=== PATIENT | male | born 1980 | race Caucasian/White ===

== ENCOUNTER 2017-12-02 13:46 | Emergency (ER) | payer OTHER ==
[~2017-12-02 13:46] MED LIST: LISI10TA7 PO
[2017-12-02] MEDS ORDERED: PROCHLORPERAZINE EDISYLATE 10 MG/2 ML VIAL ONE (14:19)
== END 2017-12-02 16:08 | disposition home or self-care (01) ==
LOC: EDH 13:46
DX: R51 Headache (principal); Z88.0 Allergy status to penicillin
CPT/HCPCS: 70450; 96374; 99284; J0780

== ENCOUNTER 2018-10-01 20:12 | Emergency (ER) | payer OTHER | END 2018-10-01 22:14 | disposition home or self-care (01) | LOC: EDH 20:12 | DX: M54.12 Radiculopathy, cervical region (principal); R05 Cough; I10 Essential (primary) hypertension; Z88.0 Allergy status to penicillin | CPT/HCPCS: 71046; 93005 ==

== ENCOUNTER → 2020-01-06 | Outpatient (CLI) | payer OTHER | END | disposition home or self-care (01) | LOC: RAH 08:16 | PROVIDERS: ATTEND Internal Medicine | DX: K21.9 Gastro-esophageal reflux disease without esophagitis (principal); K29.60 Other gastritis without bleeding | CPT/HCPCS: 74240 ==

== ENCOUNTER 2022-01-23 09:28 | Observation (INO) | payer OTHER ==
[2022-01-20 11:44] LABS: CREATININE 0.6 mg/dL (0.5-1.5); POTASSIUM 3.8 mmol/L (3.5-5.1)
[2022-01-20 12:13] LABS: BASOPHILS % (AUTO) 0.7 % (0.0-5.0); EOSINOPHILS % (AUTO) 1.8 % (0.0-8.0); HEMATOCRIT 40.1 % (42-54); LYMPHOCYTES % (AUTO) 33.3 % (21.0-51.0); MEAN CORPUSCULAR HEMOGLOBIN 27.7 pg (27.0-33.0); MEAN CORPUSCULAR HGB CONC 31.7 g/dL (32.0-36.0); MEAN CORPUSCULAR VOLUME 87.4 fL (79-99); MONOCYTES % (AUTO) 7.1 % (3.0-13.0); NEUTROPHILS % (AUTO) 56.6 % (40.0-77.0); PLATELET COUNT (AUTO) 201 K/uL (130-400); RED BLOOD CELL COUNT(AUTO) 4.59 MIL/uL (4.50-6.20); RED CELL DISTRIBUTION WIDTH 13.5 % (11.0-15.5); WHITE BLOOD COUNT (AUTO) 7.6 K/uL (4.8-10.8)
[2022-01-20 12:15] VITALS: BP 147/69
[2022-01-20 12:16] LABS: INR 0.93 (0.85-1.15); PROTHROMBIN TIME 9.4 SEC (9.6-11.6)
[2022-01-20 12:20] LABS: APPEARANCE,URINE Clear (CLEAR); BILIRUBIN,URINE Negative (NEGATIVE); COLOR,URINE Yellow (YELLOW); GLUCOSE, URINE (UA) Negative (NEGATIVE); KETONES,URINE Negative (NEGATIVE); LEUKOCYTE ESTERASE ,URINE Negative (NEGATIVE); NITRATE,URINE Negative (NEGATIVE); OCCULT BLOOD,URINE Negative (NEGATIVE); PROTEIN,URINE Negative (NEGATIVE)
[~2022-01-23] VITALS: Ht 175.3 cm; Wt 150.0 kg
[2022-01-23] VITALS (22 sets, daily range): BP systolic 100–145; BP diastolic 49–86
[~2022-01-23 09:28] MED LIST changes: +ACET-2079 PO; +BACL20TA PO; +FLUT16H NS; +IPRA3AMP24 IH; -LISI10TA7 PO; +LISI1TAB51 PO; +MONT-39 PO
[2022-01-23] MEDS ORDERED: LACTATED RINGERS 1000ML 1,000 ML IV ONE (10:14)
[2022-01-23] MEDS ORDERED: CLINDAMYCIN IVPB 900MG/50ML 50 ML IV ONE (10:14)
[2022-01-23] MEDS ORDERED: LIDOCAINE PF 100MG/5ML (2%) SYRINGE 5ML ONE (12:17)
[2022-01-23] MEDS ORDERED: GLYCOPYRROLATE 1 MG/5 ML SYRINGE ONE (12:18)
[2022-01-23] MEDS ORDERED: ONDANSETRON 4MG INJ ONE ×2 (12:18→17:50)
[2022-01-23] MEDS ORDERED: SUCCINYLCHOLINE CHLORIDE 20 MG/ML 10 ML VIAL ONE (12:18)
[2022-01-23] MEDS ORDERED: NEOSTIGMINE 5MG/5ML SYR IV ONE (12:18)
[2022-01-23] MEDS ORDERED: DEXAMETHASONE SOD PHOSPHATE 10MG/ML 1ML VIAL ONE (12:18)
[2022-01-23] MEDS ORDERED: SUCCINYLCHOLINE 200MG/10ML SYR ONE (12:18)
[2022-01-23] MEDS ORDERED: PROPOFOL 10 MG/ML 20ML VIAL IV ONE ×2 (12:18→12:23)
[2022-01-23] MEDS ORDERED: FENTANYL CITRATE PF 50 MCG/1 ML 2ML VIAL ONE (12:19)
[2022-01-23] MEDS ORDERED: ROCURONIUM 10MG/1ML SYR 10 MG/ML ML ONE ×2 (12:19→14:36)
[2022-01-23] MEDS ORDERED: MIDAZOLAM HCL 1 MG/ML 2ML VIAL ONE (12:19)
[2022-01-23] MEDS ORDERED: ROPIVACAINE 0.5% 5MG/ML 30ML IJ ONE (12:20)
[2022-01-23] MEDS ORDERED: CLINDAMYCIN 900MG/6ML INJ IJ ONE (14:00)
[2022-01-23] MEDS ORDERED: VANCOMYCIN 1G VIAL ONE (14:19)
[2022-01-23] MEDS ORDERED: VANCOMYCIN 1G VIAL IRRIG ONE (15:00)
[2022-01-23] MEDS ORDERED: TRANEXAMIC ACID 1000MG/10ML ONE (18:09)
[2022-01-23] MEDS ORDERED: FERROUS FUMARATE 324 MG TABLET PO PRN (18:30)
[2022-01-23] MEDS ORDERED: POTASSIUM CHLORIDE 20MEQ/100ML 100 ML IV PRN (18:30)
[2022-01-23] MEDS ORDERED: LIDOCAINE HCL-MPF 1% 2ML VIAL IV PRN (18:30)
[2022-01-23] MEDS ORDERED: OXYCODONE HCL 5 MG TAB PO PRN (18:30)
[2022-01-23] MEDS ORDERED: ONDANSETRON 4MG INJ IVP PRN (18:30)
[2022-01-23] MEDS ORDERED: CALCIUM CARB 500MG PO PRN (18:30)
[2022-01-23] MEDS ORDERED: KCL 20 MEQ ERTAB PO PRN (18:30)
[2022-01-23] MEDS ORDERED: TRAMADOL HCL 50 MG TABLET PO PRN (18:30)
[2022-01-23] MEDS ORDERED: POTASSIUM CHLORIDE 10% ELIXIR 20 MEQ/15 ML UDCUP PO PRN (18:30)
[2022-01-23] MEDS: ACETAMINOPHEN 500 MG TABLET PO SCH (18:30)
[2022-01-23] MEDS ORDERED: MEPERIDINE-PF 25 MG/ML SYG ONE (18:49)
[2022-01-23] MEDS: FLUTICASONE PROPIONATE 50MCG/SPRAY 16 GM BOTTLE NS SCH (21:00)
[2022-01-23] MEDS ORDERED: IPRATROPIUM/ALBUTEROL SULFATE 3 ML SOLUTION IH PRN (21:00)
[2022-01-23] MEDS: PREGABALIN 25 MG CAP PO SCH (21:04)
[2022-01-23] MEDS: CELECOXIB 200 MG CAP PO SCH (21:04)
[2022-01-23] MEDS: FAMOTIDINE 20MG TAB PO SCH (21:04)
[2022-01-23] MEDS: APIXABAN 2.5 MG TABLET PO SCH (21:04)
[2022-01-23] MEDS: OXYCODONE HCL 5 MG TAB PO PRN (21:05)
[2022-01-23] MEDS: MONTELUKAST SODIUM 10 MG TAB PO SCH (21:06)
[2022-01-23] MEDS: 0.9%NACL 1000ML 1,000 ML IV SCH (21:11)
[2022-01-23] MEDS ORDERED: IPRATROPIUM/ALBUTEROL SULFATE 3 ML SOLUTION IH ONE (22:01)
[2022-01-23] MEDS: CLINDAMYCIN IVPB 900MG/50ML 50 ML IV SCH (23:54)
[2022-01-24] VITALS (7 sets, daily range): BP systolic 96–141; BP diastolic 45–66
[2022-01-24] MEDS: OXYCODONE HCL 5 MG TAB PO PRN ×6 (01:19→23:03)
[2022-01-24] MEDS: ACETAMINOPHEN 500 MG TABLET PO SCH ×3 (02:51→17:40)
[2022-01-24 04:02] LABS: HEMATOCRIT 30.6 % (42-54); MEAN CORPUSCULAR HEMOGLOBIN 28.5 pg (27.0-33.0); MEAN CORPUSCULAR VOLUME 86.2 fL (79-99); RED BLOOD CELL COUNT(AUTO) 3.55 MIL/uL (4.50-6.20); RED CELL DISTRIBUTION WIDTH 13.3 % (11.0-15.5); WHITE BLOOD COUNT (AUTO) 12.3 K/uL (4.8-10.8)
[2022-01-24 04:18] LABS: CREATININE 0.7 mg/dL (0.5-1.5); POTASSIUM 4.7 mmol/L (3.5-5.1)
[2022-01-24] MEDS: 0.9%NACL 1000ML 1,000 ML IV SCH (04:30)
[2022-01-24] MEDS: HYDROCHLOROTHIAZIDE 25 MG TABLET PO SCH (09:00)
[2022-01-24] MEDS: LISINOPRIL 20 MG TABLET PO SCH (09:00)
[2022-01-24] MEDS: FLUTICASONE PROPIONATE 50MCG/SPRAY 16 GM BOTTLE NS SCH (09:11)
[2022-01-24] MEDS: PREGABALIN 25 MG CAP PO SCH ×2 (09:11→19:57)
[2022-01-24] MEDS: CELECOXIB 200 MG CAP PO SCH ×2 (09:11→19:57)
[2022-01-24] MEDS: APIXABAN 2.5 MG TABLET PO SCH ×2 (09:12→19:57)
[2022-01-24] MEDS: FAMOTIDINE 20MG TAB PO SCH ×2 (09:12→19:57)
[2022-01-24] MEDS: TAMSULOSIN HCL 0.4 MG CAP.ER.24H PO SCH (09:12)
[2022-01-24] MEDS: POLYETHYLENE GLYCOL 3350 17 GM POWD.PACK PO SCH (09:12)
[2022-01-24] MEDS: CLINDAMYCIN IVPB 900MG/50ML 50 ML IV SCH (09:32)
[2022-01-24] MEDS: MONTELUKAST SODIUM 10 MG TAB PO SCH (19:57)
[2022-01-24] MEDS: DiphenhydrAMINE HCL 50 MG/ML VIAL IVP PRN (20:55)
[2022-01-25] VITALS (7 sets, daily range): BP systolic 104–143; BP diastolic 49–68
[2022-01-25] MEDS: ACETAMINOPHEN 500 MG TABLET PO SCH ×3 (03:06→19:10)
[2022-01-25] MEDS: OXYCODONE HCL 5 MG TAB PO PRN ×4 (03:38→16:27)
[2022-01-25] MEDS: FLUTICASONE PROPIONATE 50MCG/SPRAY 16 GM BOTTLE NS SCH (07:55)
[2022-01-25] MEDS: TAMSULOSIN HCL 0.4 MG CAP.ER.24H PO SCH (08:37)
[2022-01-25] MEDS: FAMOTIDINE 20MG TAB PO SCH ×2 (08:37→20:24)
[2022-01-25] MEDS: PREGABALIN 25 MG CAP PO SCH ×2 (08:37→20:24)
[2022-01-25] MEDS: CELECOXIB 200 MG CAP PO SCH ×2 (08:37→20:24)
[2022-01-25] MEDS: LISINOPRIL 20 MG TABLET PO SCH (08:38)
[2022-01-25] MEDS: POLYETHYLENE GLYCOL 3350 17 GM POWD.PACK PO SCH (08:38)
[2022-01-25] MEDS: APIXABAN 2.5 MG TABLET PO SCH ×2 (08:38→20:25)
[2022-01-25] MEDS: HYDROCHLOROTHIAZIDE 25 MG TABLET PO SCH (08:38)
[2022-01-25] MEDS ORDERED: MAGNESIUM CITRATE 296 ML SOLUTION PO SCH (15:30)
[2022-01-25] MEDS: MONTELUKAST SODIUM 10 MG TAB PO SCH (20:24)
[2022-01-25] MEDS: KETOROLAC 15MG/ML VIAL (15MG/ML) IV PRN (20:25)
[2022-01-25] MEDS: DiphenhydrAMINE HCL 50 MG/ML VIAL IVP PRN (20:35)
[2022-01-26] MEDS: ACETAMINOPHEN 500 MG TABLET PO SCH ×4 (01:12→18:27)
[2022-01-26] MEDS: OXYCODONE HCL 5 MG TAB PO PRN ×3 (03:16→14:18)
[2022-01-26 04:22] VITALS: BP 127/60
[2022-01-26 08:15] VITALS: BP 133/64
[2022-01-26] MEDS: TAMSULOSIN HCL 0.4 MG CAP.ER.24H PO SCH (08:31)
[2022-01-26] MEDS: CELECOXIB 200 MG CAP PO SCH (08:31)
[2022-01-26] MEDS: APIXABAN 2.5 MG TABLET PO SCH (08:31)
[2022-01-26] MEDS: FAMOTIDINE 20MG TAB PO SCH (08:32)
[2022-01-26] MEDS: POLYETHYLENE GLYCOL 3350 17 GM POWD.PACK PO SCH (08:32)
[2022-01-26] MEDS: PREGABALIN 25 MG CAP PO SCH (08:32)
[2022-01-26] MEDS: HYDROCHLOROTHIAZIDE 25 MG TABLET PO SCH (08:34)
[2022-01-26] MEDS: LISINOPRIL 20 MG TABLET PO SCH (08:36)
[2022-01-26] MEDS: FLUTICASONE PROPIONATE 50MCG/SPRAY 16 GM BOTTLE NS SCH (09:00)
[2022-01-26] MEDS: KETOROLAC 15MG/ML VIAL (15MG/ML) IV PRN ×2 (10:16→18:26)
[2022-01-26 11:33] VITALS: BP 136/69
[2022-01-26 15:57] VITALS: BP 120/60
[2022-01-26] MEDS ORDERED: HYDR-4060 PO (17:27)
[2022-01-26] MEDS ORDERED: APIX2.5T PO (17:27)
[2022-01-26] MEDS ORDERED: BISACODYL 10 MG SUPP.RECT RC PRN (18:30)
== END 2022-01-26 19:15 ==
LOC: DAH 09:28 → DAHIP 09:29 → 4AH 18:57
PROVIDERS: ADMIT Orthopaedic Surgery; ATTEND Orthopaedic Surgery
DX: M87.052 Idiopathic aseptic necrosis of left femur (principal); Z20.822 Contact with and (suspected) exposure to COVID-19; M24.052 Loose body in left hip; D62 Acute posthemorrhagic anemia; I10 Essential (primary) hypertension; J44.9 Chronic obstructive pulmonary disease, unspecified; E78.5 Hyperlipidemia, unspecified; E66.01 Morbid (severe) obesity due to excess calories; Z87.891 Personal history of nicotine dependence; Z88.0 Allergy status to penicillin; Z68.42 Body mass index [BMI] 45.0-49.9, adult; Z79.899 Other long term (current) drug therapy
CPT/HCPCS: 27130; 36415 ×2; 64447; 73501; 73503; 76942; 80048 ×2; 81003; 85025; 85027; 85610; 87088; 87635; 87641; 94640; 96365; 96366; 96375 ×2; 96376 ×2; 97039 ×6; 97116 ×5; 97161; 97530 ×4; A4215; A4221; A4222; A4223; A4600; A4649 ×5; A4663; A5120; A9272; C1713; C1776 ×2; C9803; G0378 ×69; J0330 ×2; J1100; J1200 ×2; J1885 ×3; J2001; J2175; J2250; J2405 ×2; J2704 ×2; J2710; J2795; J3010; J3370 ×2; J3490 ×6; J7120 ×2

== ENCOUNTER 2024-05-30 00:33 | Emergency (ER) | payer OTHER ==
[~2024-05-30] VITALS: Ht 175.3 cm; Wt 154.2 kg
[~2024-05-30 00:33] MED LIST changes: -ACET-2079 PO; +APIX2.5T PO; -BACL20TA PO; +HYDR-4060 PO
[2024-05-30 01:02] LABS: APPEARANCE,URINE CLEAR (CLEAR); BILIRUBIN,URINE NEGATIVE (NEGATIVE); COLOR,URINE LIGHT-YELLOW (YELLOW); GLUCOSE, URINE (UA) NEGATIVE (NEGATIVE); KETONES,URINE NEGATIVE (NEGATIVE); LEUKOCYTE ESTERASE ,URINE NEGATIVE Leu/uL (NEGATIVE); NITRATE,URINE NEGATIVE (NEGATIVE); OCCULT BLOOD,URINE NEGATIVE (NEGATIVE); PH,URINE 7.5 (5.0-8.0); PROTEIN,URINE NEGATIVE (NEGATIVE); UROBILINOGEN,URINE 0.2 mg/dL (0.2-1.0)
[2024-05-30 01:03] LABS: ADD UA MICROSCOPIC NO
[2024-05-30 01:06] LABS: BASOPHILS # (AUTO) 0.05 K/uL (0.00-0.20); BASOPHILS % (AUTO) 0.5 % (0.0-5.0); EOSINOPHILS # (AUTO) 0.16 K/uL (0.00-0.70); EOSINOPHILS % (AUTO) 1.7 % (0.0-8.0); HEMATOCRIT 39.9 % (42-54); IMMATURE GRANULOCYTE ABSOLUTE 0.02 K/uL (0-1); LYMPHOCYTES # (AUTO) 2.2 K/uL (1.0-4.8); LYMPHOCYTES % (AUTO) 24.3 % (21.0-51.0); MEAN CORPUSCULAR HEMOGLOBIN 27.6 pg (27.0-33.0); MEAN CORPUSCULAR HGB CONC 31.8 g/dL (32.0-36.0); MEAN CORPUSCULAR VOLUME 86.7 fL (79-99); MONOCYTES # (AUTO) 0.5 K/uL (0.1-1.0); MONOCYTES % (AUTO) 5.8 % (3.0-13.0); NEUTROPHILS # (AUTO) 6.2 K/uL (1.8-7.7); NEUTROPHILS % (AUTO) 67.5 % (40.0-77.0); PLATELET COUNT (AUTO) 185 K/uL (130-400); RED CELL DISTRIBUTION WIDTH 14.2 % (11.0-15.5); WHITE BLOOD COUNT (AUTO) 9.2 K/uL (4.8-10.8)
[2024-05-30 01:14] VITALS: TEMP 98
[2024-05-30 01:17] LABS: CREATININE 0.7 mg/dL (0.5-1.3); POTASSIUM 3.7 mmol/L (3.5-5.1)
[2024-05-30] MEDS: hydroMORPHone 1 MG INJ IVP ONE (01:29)
[2024-05-30] MEDS: CYCLOBENZAPRINE HCL 10 MG TABLET PO ONE (02:00)
[2024-05-30] MEDS: DiphenhydrAMINE HCL 50 MG/ML VIAL IV ONE (02:00)
[2024-05-30] MEDS ORDERED: TRAM50TA4 PO (04:49)
[2024-05-30 05:20] VITALS: BP 178/81; PULSE 81; RESP 18; O2SAT 94
== END 2024-05-30 05:29 | disposition home or self-care (01) ==
LOC: EDH 00:33
DX: M54.50 Low back pain, unspecified (principal); R10.9 Unspecified abdominal pain; E66.01 Morbid (severe) obesity due to excess calories; G89.4 Chronic pain syndrome; J44.89 Other specified chronic obstructive pulmonary disease; E78.00 Pure hypercholesterolemia, unspecified; I10 Essential (primary) hypertension; Z96.642 Presence of left artificial hip joint; Z88.0 Allergy status to penicillin; Z79.899 Other long term (current) drug therapy; Z68.43 Body mass index [BMI] 50.0-59.9, adult
CPT/HCPCS: 99284; 96374; 96375; 80048; 85025; 81003; 36415; J1200; J1171

== ENCOUNTER → 2025-03-03 | Outpatient (CLI) | payer OTHER ==
[~2025-03-03] MED LIST changes: +TRAM50TA4 PO
[2025-03-03 15:16] LABS: IMMATURE GRANULOCYTE ABSOLUTE 0.02 K/uL (0-1); NUCLEATED RED BLOOD CELLS 0.0 % (0.0-0.19); PLATELET COUNT (AUTO) 208 K/uL (130-400); RED BLOOD CELL COUNT(AUTO) 4.55 MIL/uL (4.50-6.20); RED CELL DISTRIBUTION WIDTH 14.6 % (11.0-15.5); WHITE BLOOD COUNT (AUTO) 7.4 K/uL (4.8-10.8)
[2025-03-03 15:31] LABS: ASPARTATE AMINOTRANSFERASE 17.0 U/L (10-37); CREATININE 0.5 mg/dL (0.5-1.3); GLOMERULAR FILTR. RATE CALC 131.0 mL/min (>90); GLUCOSE,RANDOM 153.0 mg/dL (70-105); SODIUM SERUM 137.0 mmol/L (136-145); TOTAL PROTEIN, SERUM 7.6 g/dL (6.0-8.3); UREA NITROGEN, BLOOD 16.0 mg/dL (7-18)
== END | disposition home or self-care (01) ==
LOC: LAB 14:48
PROVIDERS: ATTEND Internal Medicine Gastroenterology
DX: R10.30 Lower abdominal pain, unspecified (principal)
CPT/HCPCS: 36415; 80053; 85025

== ENCOUNTER → 2025-03-10 | Outpatient (CLI) | payer OTHER ==
[~2025-03-10] MED LIST changes: +IOHEXOL 350 MG/ML 100ML INFUS..BTL IV ONE
--- NOTE | 2025-03-10 13:18 | HMCIMG ---
EXAM: CT Abdomen and Pelvis with Intravenous Contrast CLINICAL HISTORY: 44-year-old male with lower abdomen pain. TECHNIQUE: Axial computed tomography images of the abdomen and pelvis with intravenous contrast. Dose reduction technique was used including one or more of the following: automated exposure control, adjustment of mA and kV according to patient size, and/or iterative reconstruction. CONTRAST: Omnipaque 350, 100 mL COMPARISON: None provided. FINDINGS: LUNG BASES: No basilar airspace consolidation or pleural effusion. LIVER: Mild fatty liver. GALLBLADDER AND BILE DUCTS: Unremarkable. No ductal dilation. PANCREAS: Unremarkable. SPLEEN: Unremarkable. ADRENAL GLANDS: Unremarkable. KIDNEYS, URETERS, AND BLADDER: Symmetric excretion of contrast in both kidneys. No hydronephrosis or nephrolithiasis. No ureteral or bladder calculi. STOMACH AND BOWEL: No obstruction. No wall thickening. No CT evidence of colitis or acute diverticulitis. APPENDIX: Normal appendix. No CT evidence for appendicitis. PERITONEUM: No free fluid. No free air. LYMPH NODES: No lymphadenopathy. REPRODUCTIVE: Unremarkable as visualized. VASCULATURE: No aortic aneurysm. ABDOMINAL WALL AND SOFT TISSUES: Unremarkable. BONES: Left hip arthroplasty without loosening. No fracture or suspicious osseous abnormality. IMPRESSION: 1. No acute findings. Negative for appendicitis. 2. Mild hepatic steatosis. /[place]
== END | disposition home or self-care (01) ==
LOC: RAH 08:11
PROVIDERS: ATTEND Internal Medicine Gastroenterology
DX: K76.0 Fatty (change of) liver, not elsewhere classified (principal); R10.30 Lower abdominal pain, unspecified
CPT/HCPCS: 74178; Q9967